=== PATIENT | female | born 1950 | race Caucasian/White ===

== ENCOUNTER 2019-04-01 12:42 | Inpatient (IN) | payer OTHER, MEDICARE | END 2019-04-06 14:25 | LOC: JASUSAT 17:39 → J8W 04-03 12:00 → JASU-SURG 12:42 → JASUSAT 12:42 → J8W 17:39 ==

== ENCOUNTER 2019-05-25 08:04 | Day surgery (SDC) | payer OTHER, MEDICARE ==
[2019-05-21 17:31] VITALS: BMI 22.2
[2019-05-25] MEDS ORDERED: MINERAL OIL 25 ML OIL ONE (08:13)
[2019-05-25] MEDS ORDERED: BACITRACIN 15 GM TUBE TOPICAL OINTMENT ONE (08:13)
[2019-05-25] MEDS ORDERED: ONDANSETRON 4 MG/2 ML VIAL ONE (09:11)
[2019-05-25] MEDS ORDERED: LIDOCAINE HCL/PF 2% SDV 5ML VIAL ONE (09:11)
[2019-05-25] MEDS ORDERED: DEXAMETHASONE SOD PHOSPHATE 4 MG/1 ML VIAL ONE (09:11)
[2019-05-25] MEDS ORDERED: PROPOFOL 20 ML ONE (09:12)
[2019-05-25] MEDS ORDERED: MIDAZOLAM HCL 2 MG/2 ML SINGLE DOSE VIAL ONE (09:12)
[2019-05-25] MEDS ORDERED: ONDANSETRON 4 MG/2 ML VIAL IVPUSH PRN (09:57)
[2019-05-25] MEDS ORDERED: oxyCODONE HCL 5 MG TABLET PO PRN ×2 (09:57)
[2019-05-25] MEDS ORDERED: LACTATED RINGERS SOLUTION 1,000 ML IV SCH (10:00)
[2019-05-25] MEDS ORDERED: ceFAZolin SODIUM 1 GM VIAL ONE (10:17)
[2019-05-25] MEDS ORDERED: LIDOCAINE HCL 1% PRESERVATIVE FREE - 30ML VIAL ONE (10:18)
[2019-05-25] MEDS ORDERED: BUPIVACAINE HCL/PF 2.5 MG/ML - 30 ML VIAL IJ ONE (10:18)
[2019-05-25 11:26] VITALS: TEMP 97.8
--- NOTE | 2019-05-25 12:43 | OP ---
DATE OF OPERATION: 05/25/2019 PREOPERATIVE DIAGNOSIS: Large 5-cm x 5-cm open wound in the left posterior thigh. POSTOPERATIVE DIAGNOSIS: Large 5-cm x 5-cm open wound in the left posterior thigh. OPERATIVE PROCEDURE: Split-thickness skin graft of the posterior thigh. SURGEON: Floyd Katz MD ANESTHESIA: Local with sedation. Patient was brought to the operating room. Patient had a history of hematoma following a fall and developed a large opening after the hematoma was removed because of the skin necrosis, and this had become clean. Since the hole was large enough, it was decided to close it with a skin graft. Patient was placed in the prone position, and the skin was obtained microtome from the posterior thigh. Two pieces were obtained and were placed onto the open wound after it was debrided and sutured with 4-0 Vicryl. Pressure dressing was applied, and the patient went to the recovery room in stable condition. FLOYD KATZ M.D. [id number]
[2019-05-25 13:32] VITALS: BP 125/79; PULSE 91
== END 2019-05-25 12:15 | disposition home or self-care (01) ==
LOC: FASU 08:04
PROVIDERS: ATTEND Surgery Vascular Surgery
PROC: 0HBJXZZ Excision of Left Upper Leg Skin, External Approach (ICD-10-PCS; 2019-05-25)
PROC: 0HRJX74 Replacement of Left Upper Leg Skin with Autologous Tissue Substitute, Partial Thickness, External Approach (ICD-10-PCS; principal; 2019-05-25 10:27)
DX: S71.102D Unspecified open wound, left thigh, subsequent encounter (principal); Y83.8 Other surgical procedures as the cause of abnormal reaction of the patient, or of later complication, without mention of misadventure at the time of the procedure